=== PATIENT | female | born 1950 | race Caucasian/White ===

== ENCOUNTER 2019-09-02 06:40 | Emergency (ER) | payer MEDICARE, OTHER ==
[~2019-09-02] VITALS: Ht 170.2 cm; Wt 62.8 kg
== END 2019-09-02 08:09 | disposition home or self-care (01) ==
LOC: ED 06:40
PROC: 0RSJXZZ Reposition Right Shoulder Joint, External Approach (ICD-10-PCS; principal; 2019-09-02)
DX: S43.014A Anterior dislocation of right humerus, initial encounter (principal); Z88.2 Allergy status to sulfonamides; X58.XXXA Exposure to other specified factors, initial encounter
CPT/HCPCS: 23650; 73030; 99283-25; J2060; J2270

== ENCOUNTER 2022-05-15 15:31 | Emergency (ER) | payer MEDICARE ==
[~2022-05-15] VITALS: Ht 170.2 cm; Wt 59.9 kg
== END 2022-05-15 18:10 | disposition home or self-care (01) ==
LOC: ED 15:31
DX: S83.92XA Sprain of unspecified site of left knee, initial encounter (principal); Z88.2 Allergy status to sulfonamides; X58.XXXA Exposure to other specified factors, initial encounter
CPT/HCPCS: 73560; 99283-25